=== PATIENT | female | born 1975 | race Caucasian/White ===

== ENCOUNTER 2018-03-28 12:41 | Emergency (ER) | payer OTHER ==
[2018-03-28 12:45] VITALS: BP 130/88
--- NOTE | 2018-03-28 13:04 | EDPHY ---
H & P Stated Complaint: Fall over SPD tubing. 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 This happened several hours ago. She has no swelling or deformity. She has very minor pain when she extends her wrist maximally. She is not very concerned but was told to come here to have the injury documented for worker's compensation. She denies other injuries. She does not think x-rays indicated. Severity: Minimal Modifying factors: None REVIEW OF SYSTEMS: Constitutional: denies: chills, fever, recent illness, recent injury EENTM: denies: blurred vision, double vision, nose congestion Respiratory: denies: cough, shortness of breath Cardiac: denies: chest pain, irregular heart rate, lightheadedness, palpitations Gastrointestinal/Abdominal: denies: abdominal pain, diarrhea, nausea, vomiting, blood streaked stools Genitourinary: denies: dysuria, frequency, hematuria, pain Musculoskeletal: See HPI Skin: denies: lesions, rash, jaundice, bruising Neurological: denies: headache, numbness, paresthesia, tingling, dizziness, weakness Hematologic/Lymphatic: denies: blood clots, easy bleeding, easy bruising Immunologic/allergic: denies: HIV/AIDS, transplant 10 systems reviewed and negative except as noted EXAM: GENERAL: Well-appearing, well-nourished and in no acute distress. HEAD: Atraumatic, normocephalic. EYES: Pupils equal round and reactive to light, extraocular movements intact, sclera anicteric, conjunctiva are normal. ENT: TMs normal, nares patent, oropharynx clear without exudates. Moist mucous membranes. NECK: Normal range of motion, supple without lymphadenopathy or JVD. LUNGS: Breath sounds clear to auscultation bilaterally and equal. No wheezes rales or rhonchi. HEART: Regular rate and rhythm without murmurs, rubs or gallops. ABDOMEN: Soft, nontender, normoactive bowel sounds. No guarding, no rebound. No masses appreciated. BACK: No CVA tenderness, no spinal tenderness, step-offs or deformities EXTREMITIES: No visible swelling or deformity. Normal range of motion, no pitting or edema. No clubbing or cyanosis. Minor pain with extension of the wrist to 90 degrees. no paresthesias or numbness. NEUROLOGICAL: Cranial nerves II through XII grossly intact. Normal speech, normal gait. 5/5 strength, normal movement in all extremities, normal sensation , normal reflexes, no snuffbox tenderness. PSYCH: Normal mood, normal affect. SKIN: Warm, dry, normal turgor, no visible rashes or lesions. Source: Patient Exam Limitations: No limitations - Personal History Current Tetanus/Diphtheria Vaccine: Yes Current Tetanus Diphtheria and Acellular Pertussis (TDAP): Yes - Medical/Surgical History Hx Asthma: No Hx Chronic Respiratory Disease: No Hx Diabetes: No Hx Cardiac Disease: No Hx Renal Disease: No Hx Cirrhosis: No Hx Alcoholism: No Hx HIV/AIDS: No Hx Splenectomy or Spleen Trauma: No Other PMH: Denies per pt - Family History Significant Family History: No pertinent family hx - Social History Smoking Status: Never smoked Alcohol Use: Sober Drug Use: None Constitutional: Initial Vital Signs Temperature (C) 36.7 C 03/28/18 12:41 Heart Rate 81 03/28/18 12:41 Respiratory Rate 16 03/28/18 12:41 Blood Pressure 130/88 H 03/28/18 12:41 O2 Sat (%) 99 03/28/18 12:41 O2 Delivery Mode Room Air Allergies/Adverse Reactions: No Known Allergies Allergy (Unverified 03/28/18 12:43) Home Medications: Medication Instructions Recorded Spironolactone 03/28/18 Medical Decision Making ED Course/Re-evaluation: The patient's wrist exam is reassuring. No sign of swelling or deformity. No focal tenderness. This is likely a minor sprain. The patient agrees and does not feel that x-rays are indicated. We discussed symptoms to watch for and indications for returning. She feels comfortable with this plan. Differential Diagnosis: Partial list of the Differential diagnosis considered include but were not limited to; wrist sprain and although unlikely based on the history and physical exam, I also considered fracture, dislocation, vascular injury, nerve injury. I discussed these differential diagnoses and the plan with the patient as well as the usual and expected course. The patient understands that the diagnosis is provisional and that in medicine we are not always correct and that further workup is often warranted. Usual and customary warnings were given. All of the patient's questions were answered. The patient was instructed to return to the emergency department should the symptoms at all worsen or return, otherwise to followup with the physician as we discussed. Departure - Departure Disposition: Home, Routine, Self-Care Clinical Impression: Wrist pain, left Condition: Fair Instructions: Wrist Injury (ED) Referrals: NONE *PRIMARY CARE P,. [Primary Care Provider] - As per Instructions Angeles Tejada MD [[facility] [place] Primary Care Provider] - 2-3 days, if not improved
== END 2018-03-28 13:09 | disposition home or self-care (01) ==
DX: M25.532 Pain in left wrist (principal); W01.0XXA Fall on same level from slipping, tripping and stumbling without subsequent striking against object, initial encounter; Y92.538 Other ambulatory health services establishments as the place of occurrence of the external cause; Y99.0 Civilian activity done for income or pay